=== PATIENT | male | born 1955 | race Caucasian/White ===

== ENCOUNTER 2019-01-29 14:17 | Inpatient (IN) | payer OTHER ==
[2019-01-29] MEDS ORDERED: NITROGLYCERIN (SL) 0.4 MG TAB SL ×2 (15:00→17:00)
[2019-01-29 15:02] LABS: ADD MAN DIFF? NO
[2019-01-29 15:03] LABS: BASOPHILS % 0.5 % (0.0-2.0); EOSINOPHILS # 0.1 10^3/ul (0.0-0.5); EOSINOPHILS % 1.4 % (0.0-7.0); HEMATOCRIT 42.5 % (42.0-52.0); LYMPHOCYTES # 2.4 10^3/ul (0.8-2.9); LYMPHOCYTES % 30.9 % (15.0-51.0); MEAN CORPUSCULAR HEMOGLOBIN 30.1 pg (29.0-33.0); MEAN CORPUSCULAR HGB CONC 32.9 g/dl (32.0-37.0); MEAN CORPUSCULAR VOLUME 91.4 fl (82.0-101.0); MEAN PLATELET VOLUME 10.4 fl (7.4-10.4); MONOCYTE # 0.7 10^3/ul (0.3-0.9); MONOCYTES % 8.9 % (0.0-11.0); NEUTROPHIL # 4.4 10^3/ul (1.6-7.5); PLATELET COUNT 235 10^3/UL (140-415); RED BLOOD COUNT 4.65 10^6/ul (4.70-6.10); RED CELL DISTRIBUTION WIDTH 12.5 % (11.5-14.5)
[2019-01-29 15:03] LABS: WHITE BLOOD COUNT 7.6 10^3/ul (4.8-10.8)
[2019-01-29] MEDS: ASPIRIN 81 MG TAB PO (15:08)
[2019-01-29] MEDS: NITROGLYCERIN 2% 1 GM OINT PKT TD (15:08)
[2019-01-29 15:21] LABS: ANION GAP 9 (5-13); BLOOD UREA NITROGEN 21 mg/dl (7-20); CALCIUM 10.1 mg/dl (8.4-10.2); CARBON DIOXIDE 28 mmol/L (21-31); CHLORIDE 106 mmol/L (97-110); CREATININE 0.93 mg/dl (0.61-1.24); Estimated GFR > 60 mL/min (>60); GLUCOSE 97 mg/dl (70-220); POTASSIUM 4.1 mmol/L (3.5-5.1); SODIUM 143 mmol/L (135-144)
[2019-01-29 15:33] LABS: TROPONIN-I < 0.012 ng/ml (0.000-0.120)
[2019-01-29] MEDS ORDERED: ONDANSETRON 4 MG INJ IV ×2 (16:30→17:00)
[2019-01-29] MEDS ORDERED: ACETAMINOPHEN 325 MG TAB PO ×2 (16:30→17:00)
[2019-01-29] MEDS ORDERED: morphine 2 MG INJ IV (17:00)
[2019-01-29] MEDS ORDERED: hydrALAzine 20 MG INJ IV (17:00)
[2019-01-29] MEDS ORDERED: NACL 0.9% 3 ML SYG IV (17:00)
[2019-01-29 17:15] LABS: HEMOGLOBIN A1C 5.7 % (0-5.9)
[2019-01-29 18:56] LABS: FREE T4 (FREE THYROXINE) 0.94 ng/dl (0.78-2.44)
[2019-01-29] MEDS: ATORVASTATIN 80 MG TAB PO (21:47)
[2019-01-29] MEDS: ISOSORBIDE DINITRATE 10 MG TAB PO (21:49)
[2019-01-30 01:55] LABS: TROPONIN-I < 0.012 ng/ml (0.000-0.120)
[2019-01-30 07:22] LABS: ADD MAN DIFF? NO
[2019-01-30 07:26] LABS: WHITE BLOOD COUNT 7.7 10^3/ul (4.8-10.8)
[2019-01-30 07:26] LABS: BASOPHIL # 0.1 10^3/ul (0.0-0.1); BASOPHILS % 0.9 % (0.0-2.0); EOSINOPHILS # 0.2 10^3/ul (0.0-0.5); EOSINOPHILS % 2.9 % (0.0-7.0); HEMOGLOBIN 13.3 g/dl (14.0-18.0); LYMPHOCYTES # 2.4 10^3/ul (0.8-2.9); LYMPHOCYTES % 30.8 % (15.0-51.0); MEAN CORPUSCULAR HGB CONC 32.4 g/dl (32.0-37.0); MEAN CORPUSCULAR VOLUME 92.3 fl (82.0-101.0); MEAN PLATELET VOLUME 10.8 fl (7.4-10.4); MONOCYTE # 0.8 10^3/ul (0.3-0.9); NEUTROPHIL # 4.2 10^3/ul (1.6-7.5); NEUTROPHILS % 55.1 % (39.0-77.0); PLATELET COUNT 216 10^3/UL (140-415); RED BLOOD COUNT 4.44 10^6/ul (4.70-6.10); RED CELL DISTRIBUTION WIDTH 12.6 % (11.5-14.5)
[2019-01-30 07:43] LABS: INR 0.89; PROTIME 12.1 Sec (11.9-14.9); PT RATIO 0.9
[2019-01-30 07:46] LABS: CHOL/HDL RATIO 3.1 RATIO; HDL CHOLESTEROL 45 mg/dl (30-78); LDL CHOLESTEROL,CALCULATED 69 mg/dl; TRIGLYCERIDES 131 mg/dl (0-149)
[2019-01-30 07:46] LABS: CHOLESTEROL 140 mg/dl (100-200)
[2019-01-30 07:47] LABS: ANION GAP 7 (5-13); BLOOD UREA NITROGEN 30 mg/dl (7-20); CALCIUM 9.8 mg/dl (8.4-10.2); CARBON DIOXIDE 28 mmol/L (21-31); CHLORIDE 107 mmol/L (97-110); Estimated GFR > 60 mL/min (>60); GLUCOSE 95 mg/dl (70-220); POTASSIUM 4.1 mmol/L (3.5-5.1); SODIUM 142 mmol/L (135-144)
[2019-01-30 07:58] LABS: TROPONIN-I < 0.012 ng/ml (0.000-0.120)
[2019-01-30] MEDS: ENOXAPARIN 40 MG/0.4 ML SYG SC ×2 (08:33→12:35)
[2019-01-30] MEDS: ISOSORBIDE DINITRATE 10 MG TAB PO ×2 (08:38→12:32)
[2019-01-30] MEDS: ASPIRIN 81 MG TAB PO (08:38)
[2019-01-30] MEDS: AMLODIPINE 5 MG TAB PO (08:38)
[2019-01-30] MEDS: BENAZEPRIL 10 MG TAB PO (08:39)
[2019-01-30 12:49] LABS: TROPONIN-I < 0.012 ng/ml (0.000-0.120)
== END 2019-01-30 16:45 | disposition home or self-care (01) | DRG 313 ==
LOC: E/R 14:17 → TEL 16:13
DX: R07.9 Chest pain, unspecified (principal); I10 Essential (primary) hypertension; E78.5 Hyperlipidemia, unspecified; E66.9 Obesity, unspecified; Z68.30 Body mass index [BMI] 30.0-30.9, adult; Z87.891 Personal history of nicotine dependence; I25.10 Atherosclerotic heart disease of native coronary artery without angina pectoris
CPT/HCPCS: 36415; 71045; 80048; 80061; 83036; 84439; 84443; 84484; 85025; 85610; 93005; 93306; 99285-25; G0378

== ENCOUNTER 2019-02-03 11:26 | Observation (INO) | payer OTHER ==
[~2019-02-03 11:26] MED LIST: SOD CHLORIDE 0.45% 1,000 ML IV
[2019-02-03 12:02] LABS: ADD MAN DIFF? NO
[2019-02-03 12:06] LABS: BASOPHIL # 0.1 10^3/ul (0.0-0.1); BASOPHILS % 0.9 % (0.0-2.0); EOSINOPHILS # 0.2 10^3/ul (0.0-0.5); EOSINOPHILS % 2.7 % (0.0-7.0); HEMATOCRIT 43.3 % (42.0-52.0); HEMOGLOBIN 14.3 g/dl (14.0-18.0); LYMPHOCYTES # 2.6 10^3/ul (0.8-2.9); LYMPHOCYTES % 37.8 % (15.0-51.0); MEAN CORPUSCULAR HEMOGLOBIN 30.1 pg (29.0-33.0); MEAN CORPUSCULAR VOLUME 91.2 fl (82.0-101.0); MEAN PLATELET VOLUME 10.4 fl (7.4-10.4); MONOCYTE # 0.7 10^3/ul (0.3-0.9); MONOCYTES % 10.1 % (0.0-11.0); NEUTROPHIL # 3.3 10^3/ul (1.6-7.5); NEUTROPHILS % 48.4 % (39.0-77.0); PLATELET COUNT 221 10^3/UL (140-415); RED BLOOD COUNT 4.75 10^6/ul (4.70-6.10); RED CELL DISTRIBUTION WIDTH 12.4 % (11.5-14.5)
[2019-02-03 12:06] LABS: WHITE BLOOD COUNT 6.7 10^3/ul (4.8-10.8)
[2019-02-03 12:27] LABS: INR 0.85; PARTIAL THROMBOPLASTIN TIME 27.1 Sec (23.0-35.0); PROTIME 11.7 Sec (11.9-14.9); PT RATIO 0.9
[2019-02-03 12:31] LABS: ALANINE AMINOTRANSFERASE 33 IU/L (13-69); ALBUMIN 4.5 g/dl (3.3-4.9); ALKALINE PHOSPHATASE 127 IU/L (42-121); ANION GAP 8 (5-13); ASPARTATE AMINO TRANSFERASE 30 IU/L (15-46); BILIRUBIN,INDIRECT 0.5 mg/dl (0-1.1); BILIRUBIN,TOTAL 0.5 mg/dl (0.2-1.3); CALCIUM 10.2 mg/dl (8.4-10.2); CARBON DIOXIDE 29 mmol/L (21-31); CHLORIDE 107 mmol/L (97-110); CHOL/HDL RATIO 2.8 RATIO; CHOLESTEROL 151 mg/dl (100-200); CREATININE 1.02 mg/dl (0.61-1.24); Estimated GFR > 60 mL/min (>60); GLUCOSE 104 mg/dl (70-220); HDL CHOLESTEROL 53 mg/dl (30-78); LDL CHOLESTEROL,CALCULATED 80 mg/dl; POTASSIUM 4.7 mmol/L (3.5-5.1); SODIUM 144 mmol/L (135-144); TOTAL PROTEIN 7.5 g/dl (6.1-8.1); TRIGLYCERIDES 89 mg/dl (0-149)
[2019-02-03 12:33] LABS: BLOOD UREA NITROGEN 22 mg/dl (7-20)
[2019-02-03] MEDS: DIAZEPAM 5 MG TAB PO (12:37)
[2019-02-03] MEDS: FAMOTIDINE 20 MG TAB PO (12:37)
[2019-02-03] MEDS: DIPHENHYDRAMINE 50 MG CAP PO (12:37)
[2019-02-03] MEDS ORDERED: HEPARIN 1000 UNITS/ML 10 ML INJ (12:50)
[2019-02-03] MEDS ORDERED: FENTAnyl 50 MCG/ML VIAL (12:50)
[2019-02-03] MEDS ORDERED: LIDOCAINE 1% (MDV) 20 ML INJ (12:50)
[2019-02-03] MEDS ORDERED: MIDAZOLAM 1 MG/ML 2 ML INJ (12:50)
[2019-02-03] MEDS ORDERED: VERAPAMIL 5 MG INJ (12:51)
[2019-02-03] MEDS ORDERED: NITROGLYCERIN (IC) 100 MCG/ML INJ (12:51)
[2019-02-03] MEDS ORDERED: IODIXANOL LOCM 100 ML BTL (14:03)
[2019-02-03] MEDS ORDERED: SOD CHLORIDE 0.9% 1,000 ML IV (14:15)
[2019-02-03] MEDS ORDERED: ACETAMINOPHEN 325 MG TAB PO (14:30)
[2019-02-03] MEDS ORDERED: ONDANSETRON 4 MG INJ IV (14:30)
[2019-02-03] MEDS ORDERED: AL HYDROX/MG HYDROX/SIMETH 30 ML CUP PO (14:30)
[2019-02-03] MEDS ORDERED: morphine 2 MG INJ IV (14:30)
[2019-02-03] MEDS ORDERED: ISOSORBIDE DINITRATE 10 MG TAB PO (21:00)
[2019-02-03] MEDS ORDERED: ATORVASTATIN 80 MG TAB PO (21:00)
[2019-02-04] MEDS ORDERED: BENAZEPRIL 10 MG TAB PO (09:00)
[2019-02-04] MEDS ORDERED: ASPIRIN 81 MG TAB PO (09:00)
[2019-02-04] MEDS ORDERED: AMLODIPINE 5 MG TAB PO (09:00)
== END 2019-02-03 17:34 | disposition home or self-care (01) ==
LOC: CCL 11:26 → SDS 11:26 → CCL 15:45 → REC 15:45
DX: I25.10 Atherosclerotic heart disease of native coronary artery without angina pectoris (principal); I25.82 Chronic total occlusion of coronary artery; I34.0 Nonrheumatic mitral (valve) insufficiency; Z79.82 Long term (current) use of aspirin; Z87.891 Personal history of nicotine dependence
CPT/HCPCS: 80053; 80061; 85025; 85610; 85730; 93458; 93880; G0378

== ENCOUNTER 2019-02-10 05:38 | Inpatient (IN) | payer OTHER ==
[2019-02-10] MEDS ORDERED: CEFAZOLIN 2 GM/50 ML (PMX) 50 ML IVPB ×2 (06:30→07:00)
[2019-02-10] MEDS: PAPAVERINE 60 MG INJ (06:48)
[2019-02-10] MEDS: VANCOMYCIN 1 GM INJ (06:48)
[2019-02-10] MEDS: HEPARIN 1000 UNITS/ML 10 ML INJ (06:48)
[2019-02-10] MEDS ORDERED: PAPAVERINE 60 MG INJ ×2 (06:51→08:35)
[2019-02-10] MEDS ORDERED: VANCOMYCIN 1 GM INJ (06:51)
[2019-02-10] MEDS ORDERED: HEPARIN 1000 UNITS/ML 10 ML INJ ×2 (06:51→07:12)
[2019-02-10] MEDS: EPINEPHrine 4 MG in DEXTROSE 5% 246 ML IV (07:00)
[2019-02-10] MEDS: HEPARIN (10000 UNITS/ML) 10,000 UNIT, MILRINONE LACTATE 10 MG in SOD CHLORIDE 0.9% 1,00... SC (07:00)
[2019-02-10] MEDS: ASPIRIN 600 MG SUPP PR (07:00)
[2019-02-10] MEDS ORDERED: MIDAZOLAM 5 ML ×2 (07:08→07:09)
[2019-02-10] MEDS ORDERED: CEFAZOLIN 1 GM INJ (07:11)
[2019-02-10] MEDS ORDERED: LEVALBUTEROL (NEB) 1.25 MG/0.5 ML AMP HHN (07:30)
[2019-02-10] MEDS ORDERED: FENTAnyl 50 MCG/ML VIAL IV (07:30)
[2019-02-10] MEDS ORDERED: morphine 2 MG INJ IV ×2 (07:30)
[2019-02-10] MEDS ORDERED: LABETALOL HCL 20MG INJ IV (07:30)
[2019-02-10] MEDS ORDERED: IPRATROPIUM (NEB) 0.5 MG/2.5 ML AMP HHN (07:30)
[2019-02-10] MEDS ORDERED: MIDAZOLAM 1 MG/ML 2 ML INJ IV (07:30)
[2019-02-10] MEDS ORDERED: HYDROmorphONE 0.5 MG/0.5 ML SYG IV (07:30)
[2019-02-10] MEDS ORDERED: DIPHENHYDRAMINE 50 MG INJ IV (07:30)
[2019-02-10] MEDS ORDERED: hydrALAzine 20 MG INJ IV (07:30)
[2019-02-10] MEDS ORDERED: morphine 10 MG INJ IV (07:30)
[2019-02-10] MEDS ORDERED: LORAZEPAM 2 MG INJ IV (07:30)
[2019-02-10] MEDS ORDERED: PROPOFOL 100 ML (08:20)
[2019-02-10] MEDS ORDERED: MILRINONE LACTATE 1 MG/ML VIAL (08:20)
[2019-02-10] MEDS ORDERED: SEVOFLURANE 15 MIN (08:20)
[2019-02-10] MEDS ORDERED: INSULIN REGULAR, HUMAN 100 UNIT/1 ML 3ML VIAL (08:20)
[2019-02-10] MEDS ORDERED: AMINOCAPROIC ACID 5 GM INJ (08:21)
[2019-02-10] MEDS ORDERED: ALBUMIN HUMAN 25% 200 ML (08:21)
[2019-02-10] MEDS ORDERED: PROPOFOL 20 ML (08:21)
[2019-02-10] MEDS ORDERED: PROTAMINE 250 MG INJ (08:21)
[2019-02-10] MEDS ORDERED: NITROGLYCERIN 50 MG/D5W (PMX) 250 ML (08:21)
[2019-02-10] MEDS ORDERED: LIDOCAINE 2% (SDV) 5 ML INJ (08:21)
[2019-02-10] MEDS ORDERED: NEOSTIGMINE 10 MG INJ (09:38)
[2019-02-10] MEDS ORDERED: morphine 10 MG INJ (10:39)
[2019-02-10] MEDS ORDERED: DEXTROSE 50% 50 ML SYRINGE IV ×2 (11:00)
[2019-02-10] MEDS: ACCU-CHEK XX ×14 (11:00→23:56)
[2019-02-10] MEDS: NITROGLYCERIN 50 MG/D5W (PMX) 250 ML IV (11:23)
[2019-02-10] MEDS: MILRINONE LACTATE 2 MG in SOD CHLORIDE 0.9% 50 ML IV (11:24)
[2019-02-10] MEDS: INSULIN HUMAN REGULAR 100 UNIT in SOD CHLORIDE 0.9% 99 ML IVPB (11:30)
[2019-02-10] MEDS ORDERED: CA CHLORIDE 10% 10 ML SYRINGE (11:30)
[2019-02-10] MEDS ORDERED: MILRINONE LACTATE 100 ML (11:31)
[2019-02-10 11:56] LABS: ADD MAN DIFF? NO
[2019-02-10] MEDS: PROPOFOL 100 ML IV ×2 (11:56→21:21)
[2019-02-10 11:57] LABS: AADO2 Arterial 240.5 mmHg (7.0-24.0); Arterial COHb 0.3 % (0.0-3.0); Arterial Fraction of Oxyhgb 97.2 % (93.0-99.0); Arterial HCO3 22.1 mmol/L (22.0-26.0); Arterial MetHb 0.5 % (0.0-1.5); Arterial pCO2 44.2 mmhg (35-45); MODE VENT - AC; Site A-Line
[2019-02-10] MEDS: CA CHLORIDE 10% 10 ML SYRINGE IV (11:57)
[2019-02-10 11:58] LABS: BASOPHIL # 0.1 10^3/ul (0.0-0.1); BASOPHILS % 0.3 % (0.0-2.0); EOSINOPHILS # 0.1 10^3/ul (0.0-0.5); EOSINOPHILS % 0.4 % (0.0-7.0); HEMATOCRIT 32.1 % (42.0-52.0); HEMOGLOBIN 10.8 g/dl (14.0-18.0); LYMPHOCYTES # 1.8 10^3/ul (0.8-2.9); MEAN CORPUSCULAR HEMOGLOBIN 30.7 pg (29.0-33.0); MEAN CORPUSCULAR HGB CONC 33.6 g/dl (32.0-37.0); MEAN CORPUSCULAR VOLUME 91.2 fl (82.0-101.0); MEAN PLATELET VOLUME 10.7 fl (7.4-10.4); MONOCYTE # 0.5 10^3/ul (0.3-0.9); MONOCYTES % 3.6 % (0.0-11.0); NEUTROPHIL # 12.1 10^3/ul (1.6-7.5); NEUTROPHILS % 81.9 % (39.0-77.0); PLATELET COUNT 177 10^3/UL (140-415); RED BLOOD COUNT 3.52 10^6/ul (4.70-6.10); RED CELL DISTRIBUTION WIDTH 12.3 % (11.5-14.5)
[2019-02-10 11:58] LABS: WHITE BLOOD COUNT 14.8 10^3/ul (4.8-10.8)
[2019-02-10 12:01] LABS: MODE VENT - AC; MetHgb Mixed Venous 0.5 %; Mixed Venous COHb 0.3 %; Mixed Venous Fraction OxyHgb 80.3 %; Mixed Venous Oxygen Sat 80.9 mmHG (65.0-75.0); Sample Type BLMV; Site OTHER
[2019-02-10] MEDS: INSULIN HUMAN REGULAR 100 UNIT in SOD CHLORIDE 0.9% 99 ML IV (12:09)
[2019-02-10 12:17] LABS: INR 1.01; PROTIME 13.4 Sec (11.9-14.9)
[2019-02-10] MEDS: MILRINONE LACTATE 100 ML IV (12:17)
[2019-02-10 12:18] LABS: ANION GAP 9 (5-13); BLOOD UREA NITROGEN 20 mg/dl (7-20); CALCIUM 10.8 mg/dl (8.4-10.2); CARBON DIOXIDE 22 mmol/L (21-31); CHLORIDE 112 mmol/L (97-110); CREATININE 0.87 mg/dl (0.61-1.24); Estimated GFR > 60 mL/min (>60); GLUCOSE 158 mg/dl (70-220); MAGNESIUM 1.9 mg/dl (1.7-2.5); POTASSIUM 3.4 mmol/L (3.5-5.1); SODIUM 143 mmol/L (135-144)
[2019-02-10] MEDS: NORepinephrine 8MG/250 ML (PMX 250 ML IV (12:18)
[2019-02-10] MEDS: PHENYLephrine 20MG IN 250 ML 250 ML IV (12:18)
[2019-02-10] MEDS: POTASSIUM CHLORIDE 40 MEQ, CALCIUM CHLORIDE 10% 1 GM in DEXTROSE 5%-0.225% NACL 1,000 ML IV (12:51)
[2019-02-10] MEDS: POTASSIUM CHLORIDE 50 ML IVPB ×3 (12:51→15:51)
[2019-02-10] MEDS ORDERED: DOPamine-D5W 1.6 MG/ML 250 ML IV (13:00)
[2019-02-10] MEDS: MAGNESIUM SULFATE 1 GM/D5W 100 ML IVPB ×2 (13:24→14:24)
[2019-02-10] MEDS: FENTAnyl 50 MCG/ML VIAL IV (13:35)
[2019-02-10 14:54] LABS: AADO2 Arterial 81.8 mmHg (7.0-24.0); Arterial Base Excess -4.1 mmol/L (-3.0-3); Arterial Blood Gas Oxygen Sat 94.8 mmHG (95.0-98.0); Arterial COHb 0.3 % (0.0-3.0); Arterial Fraction of Oxyhgb 94.1 % (93.0-99.0); Arterial HCO3 21.7 mmol/L (22.0-26.0); Arterial MetHb 0.4 % (0.0-1.5); Arterial pCO2 42.2 mmhg (35-45); Blood Gas PS 10; MODE VENT - CPAP; Site A-Line
[2019-02-10] MEDS: HYDROmorphONE 0.5 MG/0.5 ML SYG IV ×4 (15:12→22:39)
[2019-02-10] MEDS: CEFAZOLIN 1 GM/50 ML (PMX) 50 ML IVPB ×2 (15:19→20:28)
[2019-02-10] MEDS: HYDROmorphONE 1 MG/ML SYG IV (17:40)
[2019-02-10 17:52] LABS: ADD MAN DIFF? NO
[2019-02-10 17:55] LABS: BASOPHILS % 0.2 % (0.0-2.0); HEMATOCRIT 35.6 % (42.0-52.0); HEMOGLOBIN 11.8 g/dl (14.0-18.0); LYMPHOCYTES # 0.6 10^3/ul (0.8-2.9); LYMPHOCYTES % 4.6 % (15.0-51.0); MEAN CORPUSCULAR HEMOGLOBIN 30.3 pg (29.0-33.0); MEAN CORPUSCULAR HGB CONC 33.1 g/dl (32.0-37.0); MEAN CORPUSCULAR VOLUME 91.3 fl (82.0-101.0); MEAN PLATELET VOLUME 10.7 fl (7.4-10.4); MONOCYTE # 0.7 10^3/ul (0.3-0.9); MONOCYTES % 5.3 % (0.0-11.0); NEUTROPHIL # 11.7 10^3/ul (1.6-7.5); NEUTROPHILS % 89.4 % (39.0-77.0); PLATELET COUNT 199 10^3/UL (140-415); RED CELL DISTRIBUTION WIDTH 12.7 % (11.5-14.5)
[2019-02-10 17:55] LABS: WHITE BLOOD COUNT 13.1 10^3/ul (4.8-10.8)
[2019-02-10 18:16] LABS: ANION GAP 8 (5-13); BLOOD UREA NITROGEN 19 mg/dl (7-20); CALCIUM 9.5 mg/dl (8.4-10.2); CARBON DIOXIDE 24 mmol/L (21-31); CHLORIDE 108 mmol/L (97-110); CREATININE 0.85 mg/dl (0.61-1.24); Estimated GFR > 60 mL/min (>60); GLUCOSE 152 mg/dl (70-220); MAGNESIUM 2.4 mg/dl (1.7-2.5); POTASSIUM 4.9 mmol/L (3.5-5.1); SODIUM 140 mmol/L (135-144)
[2019-02-10] MEDS: ONDANSETRON 4 MG INJ IV (19:12)
[2019-02-10] MEDS: FAMOTIDINE 20 MG INJ IV (20:28)
[2019-02-10] MEDS: ACETAMINOPHEN 325 MG TAB PO (22:11)
[2019-02-10 22:24] LABS: ADD UMIC YES; UR ASCORBIC ACID NEGATIVE (NEGATIVE); UR BILIRUBIN (Dip) NEGATIVE (NEGATIVE); UR BLOOD (Dip) 2+ mg/dL (NEGATIVE); UR CLARITY CLEAR (CLEAR); UR COLOR STRAW (YELLOW); UR GLUCOSE (Dip) NEGATIVE (NEGATIVE); UR KETONES (Dip) NEGATIVE (NEGATIVE); UR LEUKOCYTE ESTERASE (Dip) 1+ Leu/ul (NEGATIVE); UR NITRITE (Dip) NEGATIVE (NEGATIVE); UR RBC 1 /HPF (0-5); UR SPECIFIC GRAVITY (Dip) 1.016 (1.003-1.030); UR TOTAL PROTEIN (Dip) NEGATIVE (NEGATIVE); UR UROBILINOGEN (Dip) NEGATIVE (NEGATIVE); UR WBC 16 /HPF (0-5)
[2019-02-11 00:31] LABS: ANION GAP 8 (5-13); BLOOD UREA NITROGEN 17 mg/dl (7-20); CALCIUM 8.4 mg/dl (8.4-10.2); CARBON DIOXIDE 23 mmol/L (21-31); CHLORIDE 110 mmol/L (97-110); CREATININE 0.74 mg/dl (0.61-1.24); Estimated GFR > 60 mL/min (>60); GLUCOSE 127 mg/dl (70-220); POTASSIUM 4.4 mmol/L (3.5-5.1); SODIUM 141 mmol/L (135-144)
[2019-02-11] MEDS: ACCU-CHEK XX ×8 (01:00→07:53)
[2019-02-11] MEDS: POTASSIUM CHLORIDE 50 ML IVPB (01:18)
[2019-02-11] MEDS: HYDROmorphONE 0.5 MG/0.5 ML SYG IV ×3 (02:14→15:20)
[2019-02-11] MEDS: CEFAZOLIN 1 GM/50 ML (PMX) 50 ML IVPB (04:34)
[2019-02-11] MEDS: POTASSIUM CHLORIDE 40 MEQ, CALCIUM CHLORIDE 10% 1 GM in DEXTROSE 5%-0.225% NACL 1,000 ML IV ×2 (05:05→09:10)
[2019-02-11] MEDS: SOD CHLORIDE 0.9% 500 ML IV (05:12)
[2019-02-11 05:22] LABS: ADD MAN DIFF? NO
[2019-02-11 05:29] LABS: WHITE BLOOD COUNT 14.2 10^3/ul (4.8-10.8)
[2019-02-11 05:29] LABS: BASOPHILS % 0.2 % (0.0-2.0); HEMATOCRIT 39.3 % (42.0-52.0); HEMOGLOBIN 12.9 g/dl (14.0-18.0); LYMPHOCYTES # 1.6 10^3/ul (0.8-2.9); LYMPHOCYTES % 11.5 % (15.0-51.0); MEAN CORPUSCULAR HEMOGLOBIN 30.2 pg (29.0-33.0); MEAN CORPUSCULAR HGB CONC 32.8 g/dl (32.0-37.0); MEAN PLATELET VOLUME 11.1 fl (7.4-10.4); MONOCYTE # 1.2 10^3/ul (0.3-0.9); MONOCYTES % 8.1 % (0.0-11.0); NEUTROPHIL # 11.4 10^3/ul (1.6-7.5); NEUTROPHILS % 79.9 % (39.0-77.0); PLATELET COUNT 246 10^3/UL (140-415); RED BLOOD COUNT 4.27 10^6/ul (4.70-6.10)
[2019-02-11 05:40] LABS: AADO2 Arterial 67.3 mmHg (7.0-24.0); Allen Test ACCEPTAB; Arterial Base Excess -5.2 mmol/L (-3.0-3); Arterial COHb 0.3 % (0.0-3.0); Arterial Fraction of Oxyhgb 95.4 % (93.0-99.0); Arterial HCO3 20.4 mmol/L (22.0-26.0); Arterial MetHb 0.3 % (0.0-1.5); Arterial pCO2 40.4 mmhg (35-45); MODE NASAL CANNULA; Site A-Line
[2019-02-11 05:42] LABS: INR 0.95; PROTIME 12.8 Sec (11.9-14.9)
[2019-02-11 05:43] LABS: PARTIAL THROMBOPLASTIN TIME 27.5 Sec (23.0-35.0)
[2019-02-11 06:01] LABS: ANION GAP 11 (5-13); BLOOD UREA NITROGEN 19 mg/dl (7-20); CALCIUM 9.9 mg/dl (8.4-10.2); CARBON DIOXIDE 22 mmol/L (21-31); CHLORIDE 107 mmol/L (97-110); CREATININE 1.02 mg/dl (0.61-1.24); Estimated GFR > 60 mL/min (>60); GLUCOSE 152 mg/dl (70-220); MAGNESIUM 2.3 mg/dl (1.7-2.5); POTASSIUM 5.3 mmol/L (3.5-5.1); SODIUM 140 mmol/L (135-144)
[2019-02-11] MEDS: FAMOTIDINE 20 MG INJ IV ×2 (07:52→20:09)
[2019-02-11] MEDS: ASPIRIN 325 MG TAB PO (09:10)
[2019-02-11] MEDS ORDERED: GLUCAGON 1 MG INJ IM (09:30)
[2019-02-11] MEDS ORDERED: GLUCOSE GEL 15 GRAM TUBE BUCCAL (09:30)
[2019-02-11] MEDS ORDERED: GLUCOSE GEL 15 GRAM TUBE PO ×2 (09:30)
[2019-02-11] MEDS ORDERED: DEXTROSE 50% 50 ML SYRINGE IV ×2 (09:30)
[2019-02-11] MEDS: OXYCODONE/ACETAMINOPHEN (5/325) TAB PO ×4 (09:47→20:07)
[2019-02-11] MEDS: INSULIN ASPART [NOVOLOG] 3 ML PEN SC ×3 (11:25→20:08)
[2019-02-11 12:26] LABS: HEMATOCRIT 35.7 % (42.0-52.0)
[2019-02-11] MEDS: FUROSEMIDE 20 MG INJ IV (12:54)
[2019-02-11] MEDS: ENOXAPARIN 40 MG/0.4 ML SYG SC (16:36)
[2019-02-11] MEDS: ATORVASTATIN 40 MG TAB PO (20:06)
[2019-02-11] MEDS: METOPROLOL 25 MG TAB PO (20:07)
[2019-02-12 05:06] LABS: ADD MAN DIFF? NO
[2019-02-12 05:12] LABS: WHITE BLOOD COUNT 9.9 10^3/ul (4.8-10.8)
[2019-02-12 05:12] LABS: BASOPHILS % 0.2 % (0.0-2.0); EOSINOPHILS % 0.3 % (0.0-7.0); HEMATOCRIT 31.3 % (42.0-52.0); HEMOGLOBIN 10.3 g/dl (14.0-18.0); LYMPHOCYTES # 1.7 10^3/ul (0.8-2.9); LYMPHOCYTES % 16.6 % (15.0-51.0); MEAN CORPUSCULAR HEMOGLOBIN 30.7 pg (29.0-33.0); MEAN CORPUSCULAR HGB CONC 32.9 g/dl (32.0-37.0); MEAN CORPUSCULAR VOLUME 93.2 fl (82.0-101.0); MEAN PLATELET VOLUME 10.7 fl (7.4-10.4); MONOCYTES % 9.9 % (0.0-11.0); NEUTROPHIL # 7.2 10^3/ul (1.6-7.5); NEUTROPHILS % 72.7 % (39.0-77.0); PLATELET COUNT 181 10^3/UL (140-415); RED BLOOD COUNT 3.36 10^6/ul (4.70-6.10); RED CELL DISTRIBUTION WIDTH 12.7 % (11.5-14.5)
[2019-02-12 05:38] LABS: ANION GAP 8 (5-13); BLOOD UREA NITROGEN 24 mg/dl (7-20); CALCIUM 9.1 mg/dl (8.4-10.2); CARBON DIOXIDE 28 mmol/L (21-31); CHLORIDE 102 mmol/L (97-110); CREATININE 1.22 mg/dl (0.61-1.24); Estimated GFR 60 mL/min (>60); GLUCOSE 137 mg/dl (70-220); MAGNESIUM 2.2 mg/dl (1.7-2.5); PHOSPHORUS 2.9 mg/dl (2.5-4.9); POTASSIUM 4.4 mmol/L (3.5-5.1); SODIUM 138 mmol/L (135-144)
[2019-02-12] MEDS: INSULIN ASPART [NOVOLOG] 3 ML PEN SC ×4 (07:35→20:32)
[2019-02-12] MEDS: FAMOTIDINE 20 MG INJ IV ×2 (08:21→20:29)
[2019-02-12] MEDS: ASPIRIN 325 MG TAB PO (08:21)
[2019-02-12] MEDS: METOPROLOL 25 MG TAB PO ×2 (08:22→20:30)
[2019-02-12] MEDS: ENOXAPARIN 40 MG/0.4 ML SYG SC (08:24)
[2019-02-12] MEDS: OXYCODONE/ACETAMINOPHEN (5/325) TAB PO (20:29)
[2019-02-12] MEDS: ATORVASTATIN 40 MG TAB PO (20:29)
[2019-02-13 05:04] LABS: ADD MAN DIFF? NO
[2019-02-13 05:11] LABS: WHITE BLOOD COUNT 9.5 10^3/ul (4.8-10.8)
[2019-02-13 05:11] LABS: BASOPHIL # 0.1 10^3/ul (0.0-0.1); BASOPHILS % 0.5 % (0.0-2.0); EOSINOPHILS # 0.2 10^3/ul (0.0-0.5); EOSINOPHILS % 1.9 % (0.0-7.0); HEMOGLOBIN 9.5 g/dl (14.0-18.0); LYMPHOCYTES # 2.2 10^3/ul (0.8-2.9); LYMPHOCYTES % 23.7 % (15.0-51.0); MEAN CORPUSCULAR HEMOGLOBIN 30.6 pg (29.0-33.0); MEAN CORPUSCULAR HGB CONC 32.8 g/dl (32.0-37.0); MEAN CORPUSCULAR VOLUME 93.5 fl (82.0-101.0); MEAN PLATELET VOLUME 10.4 fl (7.4-10.4); MONOCYTE # 1.1 10^3/ul (0.3-0.9); MONOCYTES % 11.7 % (0.0-11.0); NEUTROPHIL # 5.9 10^3/ul (1.6-7.5); NEUTROPHILS % 61.9 % (39.0-77.0); PLATELET COUNT 183 10^3/UL (140-415); RED CELL DISTRIBUTION WIDTH 12.5 % (11.5-14.5)
[2019-02-13 05:29] LABS: ANION GAP 6 (5-13); BLOOD UREA NITROGEN 26 mg/dl (7-20); CALCIUM 9.1 mg/dl (8.4-10.2); CARBON DIOXIDE 31 mmol/L (21-31); CHLORIDE 102 mmol/L (97-110); CREATININE 1.15 mg/dl (0.61-1.24); Estimated GFR > 60 mL/min (>60); GLUCOSE 109 mg/dl (70-220); MAGNESIUM 2.4 mg/dl (1.7-2.5); PHOSPHORUS 3.1 mg/dl (2.5-4.9); POTASSIUM 4.9 mmol/L (3.5-5.1); SODIUM 139 mmol/L (135-144)
[2019-02-13] MEDS: INSULIN ASPART [NOVOLOG] 3 ML PEN SC ×4 (07:35→21:00)
[2019-02-13] MEDS: ASPIRIN 325 MG TAB PO (08:02)
[2019-02-13] MEDS: FAMOTIDINE 20 MG INJ IV (08:02)
[2019-02-13] MEDS: ENOXAPARIN 40 MG/0.4 ML SYG SC (08:03)
[2019-02-13] MEDS: METOPROLOL 25 MG TAB PO ×2 (08:04→22:16)
[2019-02-13] MEDS ORDERED: SENNA TAB PO (13:00)
[2019-02-13] MEDS: ATORVASTATIN 40 MG TAB PO (22:15)
[2019-02-13] MEDS: OXYCODONE/ACETAMINOPHEN (5/325) TAB PO (22:15)
[2019-02-13] MEDS: FAMOTIDINE 20 MG TAB PO (22:16)
[2019-02-14 06:33] LABS: ADD MAN DIFF? NO
[2019-02-14 06:44] LABS: BASOPHIL # 0.1 10^3/ul (0.0-0.1); BASOPHILS % 0.5 % (0.0-2.0); EOSINOPHILS # 0.3 10^3/ul (0.0-0.5); HEMATOCRIT 29.1 % (42.0-52.0); HEMOGLOBIN 9.7 g/dl (14.0-18.0); LYMPHOCYTES # 2.3 10^3/ul (0.8-2.9); LYMPHOCYTES % 23.8 % (15.0-51.0); MEAN CORPUSCULAR HEMOGLOBIN 30.6 pg (29.0-33.0); MEAN CORPUSCULAR HGB CONC 33.3 g/dl (32.0-37.0); MEAN CORPUSCULAR VOLUME 91.8 fl (82.0-101.0); MEAN PLATELET VOLUME 10.1 fl (7.4-10.4); MONOCYTE # 1.1 10^3/ul (0.3-0.9); MONOCYTES % 11.6 % (0.0-11.0); NEUTROPHIL # 5.9 10^3/ul (1.6-7.5); NEUTROPHILS % 60.7 % (39.0-77.0); PLATELET COUNT 242 10^3/UL (140-415); RED BLOOD COUNT 3.17 10^6/ul (4.70-6.10); RED CELL DISTRIBUTION WIDTH 12.4 % (11.5-14.5)
[2019-02-14 06:44] LABS: WHITE BLOOD COUNT 9.7 10^3/ul (4.8-10.8)
[2019-02-14 07:20] LABS: ANION GAP 6 (5-13); BLOOD UREA NITROGEN 21 mg/dl (7-20); CALCIUM 8.9 mg/dl (8.4-10.2); CARBON DIOXIDE 31 mmol/L (21-31); CHLORIDE 103 mmol/L (97-110); CREATININE 0.91 mg/dl (0.61-1.24); Estimated GFR > 60 mL/min (>60); GLUCOSE 112 mg/dl (70-220); MAGNESIUM 2.4 mg/dl (1.7-2.5); PHOSPHORUS 3.2 mg/dl (2.5-4.9); POTASSIUM 5.1 mmol/L (3.5-5.1); SODIUM 140 mmol/L (135-144)
[2019-02-14] MEDS: INSULIN ASPART [NOVOLOG] 3 ML PEN SC (07:26)
[2019-02-14] MEDS: ASPIRIN 325 MG TAB PO (08:11)
[2019-02-14] MEDS: FAMOTIDINE 20 MG TAB PO (08:11)
[2019-02-14] MEDS: METOPROLOL 25 MG TAB PO (08:11)
[2019-02-14] MEDS: ENOXAPARIN 40 MG/0.4 ML SYG SC (08:15)
== END 2019-02-14 12:15 | disposition home or self-care (01) | DRG 236 ==
LOC: REC 05:38 → TEL 02-13 15:45 → REC 09:42 → ICU 11:00
PROC: 02100Z9 Bypass Coronary Artery, One Artery from Left Internal Mammary, Open Approach (ICD-10-PCS; principal; 2019-02-10 07:26)
PROC: 06BP4ZZ Excision of Right Saphenous Vein, Percutaneous Endoscopic Approach (ICD-10-PCS; 2019-02-10 07:26)
PROC: 021009W Bypass Coronary Artery, One Artery from Aorta with Autologous Venous Tissue, Open Approach (ICD-10-PCS; 2019-02-10 07:26)
DX: I25.119 Atherosclerotic heart disease of native coronary artery with unspecified angina pectoris (principal); I25.82 Chronic total occlusion of coronary artery; I10 Essential (primary) hypertension; E78.5 Hyperlipidemia, unspecified; R73.9 Hyperglycemia, unspecified; D64.9 Anemia, unspecified; K21.9 Gastro-esophageal reflux disease without esophagitis; E66.9 Obesity, unspecified; Z68.30 Body mass index [BMI] 30.0-30.9, adult; Z79.82 Long term (current) use of aspirin; Z79.4 Long term (current) use of insulin; Z87.891 Personal history of nicotine dependence
CPT/HCPCS: 36592; 36600; 71045; 80048; 81001; 82803; 82962; 83735; 84100; 85014; 85025; 85610; 85730; 86850; 86900; 86901; 86920; 87040-91; 87081; 93005; 93312; 93320; 93325; 94002; 94770; 97116; 97161; 97530